=== PATIENT | male | born 1985 | race Caucasian/White ===

== ENCOUNTER 2017-04-25 15:09 | Emergency (ER) | payer SELFPAY ==
[~2017-04-25] VITALS: Ht 172.7 cm; Wt 98.0 kg
[2017-04-25 15:18] VITALS: BP 167/78; PULSE 79; RESP 16; TEMP 98.1; O2SAT 99
--- NOTE | 2017-04-25 15:41 | PD ---
HPI Chief Complaint: Musculoskeletal Complaint Time Seen by Provider: 15:24 Travel History International Travel<30 days: No Contact w/Intl Traveler<30days: No Traveled to known affect area: No History of Present Illness HPI 31-year-old male presents to the ED for evaluation one-week history of 2/10 constant left anterolateral thigh pain. Patient can identify no acute injury or recent overuse. He denies numbness, tingling, weakness, limitations to range of motion of the extremity, edema of the extremity, popliteal pain, recent history of prolonged immobilization, family history of DVT, chest pain, shortness of breath. He treated at home a few days ago with a dose of ibuprofen with no improvement of symptoms. [facility] Past Medical History Medical History: Denies Significant Hx Past Surgical History Appendectomy: Yes Social History Alcohol Use: No Tobacco Use: No Substance Use: No Allergies-Medications (Allergen,Severity, Reaction): Coded Allergies: No Known Allergies (Unverified , 04/25/17) Reported Meds & Prescriptions Reported Meds & Active Scripts Active No Active Prescriptions or Reported Medications Review of Systems Except as stated in HPI: all other systems reviewed are Neg Physical Exam Narrative GENERAL: Well-nourished, well-developed white male in no acute distress. SKIN: Focused skin assessment warm/dry. HEAD: Normocephalic. EYES: No scleral icterus. No injection or drainage. NECK: Supple, trachea midline. No JVD or lymphadenopathy. CARDIOVASCULAR: Regular rate and rhythm without murmurs, gallops, or rubs. RESPIRATORY: Breath sounds equal bilaterally. No accessory muscle use. GASTROINTESTINAL: Abdomen soft, non-tender, nondistended. MUSCULOSKELETAL: No cyanosis, or edema. No tenderness to palpation of the hip or knee joints bilaterally. 5/5 strength of dorsiflexion, plantar flexion, knee and hip flexion bilaterally. No pain elicited with internal or external rotation bilaterally. Calf and thighs are symmetrical bilaterally. No popliteal tenderness bilaterally. Homans sign negative bilaterally. Straight leg raise negative bilaterally. FOCUSED LEFT LOWER EXTREMITY EXAM: 2+ DP pulse. There is a varicose vein on the anterolateral aspect of the left thigh. There is tenderness to palpation along the distal one third, medial edge of the vastus lateralis muscle. BACK: Nontender without obvious deformity. No CVA tenderness. Data Data Last Documented VS Vital Signs Date Time Temp Pulse Resp B/P (MAP) Pulse Ox O2 Delivery O2 Flow Rate FiO2 04/25/17 15:18 98.1 79 16 167/78 (107) 99 Orders Orders Ed Discharge Order (04/25/17 15:50) MDM Medical Decision Making Medical Screen Exam Complete: Yes Emergency Medical Condition: Yes Differential Diagnosis Musculoskeletal strain versus sprain versus musculoskeletal pain versus less likely superficial thrombophlebitis versus likely DVT versus other Narrative Course 31-year-old male presents to the ED for evaluation one-week history of 2/10 constant left anterolateral thigh pain. Patient can identify no acute injury or recent overuse. He denies numbness, tingling, weakness, limitations to range of motion of the extremity, edema of the extremity, popliteal pain, recent history of prolonged immobilization, family history of DVT, chest pain, shortness of breath. Vitals reviewed. On physical exam the patient has tenderness to palpation of the lateral aspect of the vastus lateralis with a small varicose vein in close proximity. Exam otherwise unremarkable. Wells score -1. I discussed the differential diagnosis with the patient. I explained to him the Well's score as well as his low probability of DVT. I recommended worse of anti-inflammatory medications along with rest, ice, elevation as capable. We discussed reasons to return to the ED. Patient indicated understanding of instructions. He is very agreeable to the care plan. He is stable and discharged home. Diagnosis Primary Impression: Musculoskeletal pain of left thigh Referrals: [facility] Patient Instructions: General Instructions, Musculoskeletal Pain (ED) Additional Instructions: Rest, ice, elevate the extremity as possible. Avoid heavy weight lifting or overuse. Take 2 Aleve every 12 hours for the next 5 days. Alternately you may take 800 mg of ibuprofen every 8 hours for the next 5 days. DO NOT TAKE BOTH OF THESE MEDICATIONS CONCURRENTLY. Take one or the other. NSAIDs increase risk of gastrointestinal bleeding. Stop taking NSAIDs if you have any dark tarry stools or blood in the bowl after a BM. Follow-up with the [facility] as discussed. Return to the ED for worsening symptoms or any urgent or emergent medical condition. Scripts No Active Prescriptions or Reported Meds Disposition: 01 DISCHARGE HOME Condition: Stable Britt Figueredo Apr 25, 2017 15:41
== END 2017-04-25 16:01 | disposition home or self-care (01) ==
LOC: PHEFT 15:09
DX: M79.652 Pain in left thigh (principal)
CPT/HCPCS: 99282